=== PATIENT | female | born 1975 ===

== ENCOUNTER 2016-10-26 17:21 | Emergency (ER) | payer OTHER ==
[2016-10-26 17:27] VITALS: BP 126/63; PULSE 98; RESP 18; TEMP 98.1; O2SAT 97
--- NOTE | 2016-10-26 17:32 | ED PDOC ---
HPI: General Adult Time Seen by Provider: 10/26/16 17:31 Chief Complaint (Nursing): Abnormal Skin Integrity Chief Complaint (Provider): bug bite History Per: Patient Additional Complaint(s): Patient presents to ED for evaluation of bug bite to right arm sustained last week. Over the past 2 days she has had more pain and redness. Patient states she was bit by a mosquito. She denies any fever or chills, denies any active drainage. No recent travel. No meds taken for pain relief. Past Medical History Reviewed: Historical Data, Nursing Documentation, Vital Signs Vital Signs: Last Vital Signs Temp 98.1 F 10/26/16 17:25 Pulse 98 H 10/26/16 17:25 Resp 18 10/26/16 17:25 BP 126/63 10/26/16 17:25 Pulse Ox 97 10/26/16 18:22 - Medical History PMH: No Chronic Diseases - Surgical History Other surgeries: cervix biopsy - Family History Family History: States: No Known Family Hx - Living Arrangements Living Arrangements: With Family - Social History Current smoker - smoking cessation education provided: No Alcohol: None Drugs: Denies - Home Medications Home Medications: Ambulatory Orders Medication Instructions Recorded Clindamycin [Cleocin] 300 mg PO TID #21 cap 10/26/16 Prednisone 50 mg PO DAILY #4 tablet 10/26/16 - Allergies Allergies/Adverse Reactions: Allergies Allergy/AdvReac Type Severity Reaction Status Date / Time codeine Allergy RASH Verified 10/26/16 17:25 Review of Systems ROS Statement: Except As Marked, All Systems Reviewed And Found Negative Constitutional: Negative for: Fever, Chills Skin: Positive for: Other (bug bite to arm) Physical Exam - Reviewed Nursing Documentation Reviewed: Yes Vital Signs Reviewed: Yes - Physical Exam Appears: Positive for: Well, Non-toxic, No Acute Distress Extremity: Positive for: Other (insect bite to palmar aspect of right forearm with localized surrounding erythema, no active drainage or bleeding, no erythematous streaking. ) Neurologic/Psych: Positive for: Alert, Oriented - Laboratory Results Urine POC: Negative - ECG O2 Sat by Pulse Oximetry: 97 Pulse Ox Interpretation: Normal Medical Decision Making Medical Decision Making: Impression: Infected insect bite. Plan: test PO prednisone initial dose PO clindamycin initial dose Rx given for clinda and prednisone. Erythema borders were demarcated with pen. Patient was instructed to RTED if redness worsens, otherwise to follow up with clinic in 2-3 days. Disposition - Clinical Impression Clinical Impression: Infected insect bite - Patient ED Disposition Is Patient to be Admitted: No Counseled Patient/Family Regarding: Diagnosis, Need For Followup, Rx Given - Disposition Referrals: [facility], [facility] [Outside] Disposition: Routine/Home Disposition Time: 18:20 Condition: STABLE Additional Instructions: Keep area clean and dry. Take rx meds as directed along with over the counter motrin for pain. Follow up in 2-3 days with clinic or return any time if acutely worse. Prescriptions: Clindamycin [Cleocin] 300 mg PO TID #21 cap Prednisone 50 mg PO DAILY #4 tablet Instructions: Insect Bite or Sting (ED) Print Language: DANISH
== END 2016-10-26 18:35 | disposition home or self-care (01) ==
LOC: H.ER 17:21
DX: L08.9 Local infection of the skin and subcutaneous tissue, unspecified (principal); W57.XXXA Bitten or stung by nonvenomous insect and other nonvenomous arthropods, initial encounter